=== PATIENT | male | born 1965 | race African-American/Black ===

== ENCOUNTER 2017-05-07 15:55 | Inpatient (IN) | payer OTHER ==
[~2017-05-07] VITALS: Ht 175.3 cm; Wt 144.8 kg
[2017-05-07] MEDS ORDERED: SODIUM CHLORIDE 0.9% 1,000 ML IV SCH (16:09)
[2017-05-07] MEDS ORDERED: ASPIRIN 325 MG TABLET PO STA (16:09)
[2017-05-07] MEDS ORDERED: MORPHINE SULFATE 4 MG/ML, 1ML ONE ×2 (16:15→16:26)
[2017-05-07] MEDS ORDERED: ONDANSETRON 2MG/ML, 2ML ONE (16:18)
[2017-05-07 16:28] LABS: HEMATOCRIT 45.2 % (39.2-51.8); HEMOGLOBIN 14.3 g/dL (13.7-18.0); WHITE BLOOD COUNT 13.2 x10^3/uL (3.4-10)
[2017-05-07] MEDS ORDERED: morphine SULFATE 10 MG/ML, 1ML IVPush ONE (16:30)
[2017-05-07] MEDS ORDERED: FENTANYL PF 100 MCG/2ML IVPush PRN (16:30)
[2017-05-07] MEDS ORDERED: ONDANSETRON 2MG/ML, 2ML IVPush ONE (16:30)
[2017-05-07] MEDS ORDERED: MORPHINE SULFATE 4 MG/ML, 1ML IVPush ONE (16:30)
[2017-05-07] MEDS ORDERED: NITROGLYCERIN 5 MG/ML, 10ML ONE (16:40)
[2017-05-07] MEDS ORDERED: LIDOCAINE 2%, 20ML ONE (16:40)
[2017-05-07] MEDS ORDERED: FENTANYL PF 100 MCG/2ML ONE (16:40)
[2017-05-07] MEDS ORDERED: MIDAZOLAM 1 MG/ML, 5ML ONE (16:40)
[2017-05-07] MEDS ORDERED: HEPARIN 1,000 UNITS/ML, 10ML ONE ×2 (16:40→16:59)
[2017-05-07] MEDS ORDERED: VERAPAMIL 2.5 MG/ML, 2ML ONE (16:40)
[2017-05-07] MEDS ORDERED: BIVALIRUDIN 250 MG ONE ×2 (16:40→16:47)
[2017-05-07] MEDS ORDERED: TICAGRELOR 90 MG TABLET ONE (16:40)
[2017-05-07] MEDS ORDERED: PRASUGREL 10 MG TABLET ONE (16:41)
[2017-05-07] MEDS ORDERED: BIVALIRUDIN 250 MG in DEXTROSE 5% 50 ML IV SCH (17:26)
[2017-05-07] MEDS ORDERED: ZOLPIDEM 5MG TABLET PO PRN (17:30)
[2017-05-07] MEDS ORDERED: ONDANSETRON 2MG/ML, 2ML IVPush PRN (17:30)
[2017-05-07] MEDS ORDERED: ACETAMINOPHEN 325 MG TABLET PO PRN (17:30)
[2017-05-07] MEDS ORDERED: METF10002 PO (18:09)
[2017-05-07] MEDS ORDERED: ATOR40TA78 PO (18:09)
[2017-05-07] MEDS ORDERED: LISI10TA2 PO (18:09)
[2017-05-07] MEDS ORDERED: GLIP10TA13 PO (18:09)
[2017-05-07] MEDS ORDERED: NPH,100V SQ-INSULIN (18:09)
[2017-05-07 18:10] VITALS: BP 129/82
[2017-05-07] MEDS: METOPROLOL TARTRATE 25 MG TABLET PO SCH (18:33)
[2017-05-07 18:42] LABS: IS PT STATUS REG ER OR PRE ER? NO
[2017-05-07] MEDS ORDERED: metFORMIN 500 MG TABLET PO SCH (21:00)
[2017-05-07] MEDS: INSULIN ASPART 100 UNITS/ML, PEN SQ-INSULIN SCH (21:10)
[2017-05-07] MEDS: INSULIN NPH HUMAN 100 UNIT/ML, 3ML VIAL SQ-INSULIN SCH (21:26)
[2017-05-08 00:06] LABS: IS PT STATUS REG ER OR PRE ER? NO
[2017-05-08 04:00] VITALS: BP 122/84
[2017-05-08 04:47] LABS: HEMATOCRIT 42.4 % (39.2-51.8); HEMOGLOBIN 13.6 g/dL (13.7-18.0)
[2017-05-08 04:56] LABS: BLOOD UREA NITROGEN 13 mg/dL (7-18)
[2017-05-08] MEDS: METOPROLOL TARTRATE 25 MG TABLET PO SCH ×2 (05:58→17:11)
[2017-05-08] MEDS: ASPIRIN 325 MG TABLET PO SCH (05:58)
[2017-05-08] MEDS: INSULIN ASPART 100 UNITS/ML, PEN SQ-INSULIN SCH ×4 (06:52→21:57)
[2017-05-08] MEDS: INSULIN NPH HUMAN 100 UNIT/ML, 3ML VIAL SQ-INSULIN SCH ×2 (08:55→21:57)
[2017-05-08] MEDS: PRASUGREL 10 MG TABLET PO SCH (08:59)
[2017-05-08] MEDS: ATORVASTATIN 40 MG TABLET PO SCH (11:26)
[2017-05-08] MEDS: LISINOPRIL 10 MG TABLET PO SCH (11:26)
[2017-05-08 15:07] VITALS: BP 148/72
[2017-05-08] MEDS ORDERED: ZOLPIDEM 5MG TABLET PO PRN (20:00)
[2017-05-08] MEDS ORDERED: ONDANSETRON 2MG/ML, 2ML IVPush PRN (20:00)
[2017-05-08] MEDS ORDERED: ACETAMINOPHEN 325 MG TABLET PO PRN (20:00)
[2017-05-08 20:30] VITALS: BP 106/67
[2017-05-09 02:00] VITALS: BP 104/66
[2017-05-09] MEDS: METOPROLOL TARTRATE 25 MG TABLET PO SCH (06:00)
[2017-05-09] MEDS ORDERED: METOPROLOL TARTRATE 50 MG TABLET ONE (06:07)
[2017-05-09] MEDS: ASPIRIN 325 MG TABLET PO SCH (06:13)
[2017-05-09] MEDS: INSULIN ASPART 100 UNITS/ML, PEN SQ-INSULIN SCH ×2 (07:00→11:49)
[2017-05-09 07:50] VITALS: BP 111/71
[2017-05-09] MEDS: PRASUGREL 10 MG TABLET PO SCH (09:00)
[2017-05-09] MEDS ORDERED: ASPI-515 PO (10:55)
[2017-05-09] MEDS ORDERED: METO25TA35 PO (10:55)
[2017-05-09] MEDS ORDERED: PRAS10TA4 PO (10:55)
[2017-05-09] MEDS: ATORVASTATIN 40 MG TABLET PO SCH (10:56)
[2017-05-09] MEDS: INSULIN NPH HUMAN 100 UNIT/ML, 3ML VIAL SQ-INSULIN SCH (10:57)
[2017-05-09] MEDS: LISINOPRIL 10 MG TABLET PO SCH (10:57)
[2017-05-09] MEDS ORDERED: NITR0.4T28 SL (12:26)
== END 2017-05-09 12:31 | disposition home or self-care (01) | DRG 247 ==
LOC: ED 16:18 → EDIP 16:45 → CCU 17:36 → 5SO 05-08 11:44 → DCLOUNGE 05-09 12:20
PROVIDERS: ADMIT Internal Medicine Cardiovascular Disease; ATTEND Internal Medicine Cardiovascular Disease
PROC: 027034Z Dilation of Coronary Artery, One Artery with Drug-eluting Intraluminal Device, Percutaneous Approach (ICD-10-PCS; principal; 2017-05-07)
PROC: 03HY32Z Insertion of Monitoring Device into Upper Artery, Percutaneous Approach (ICD-10-PCS; 2017-05-07)
PROC: 4A023N7 Measurement of Cardiac Sampling and Pressure, Left Heart, Percutaneous Approach (ICD-10-PCS; 2017-05-07)
PROC: B2111ZZ Fluoroscopy of Multiple Coronary Arteries using Low Osmolar Contrast (ICD-10-PCS; 2017-05-07)
PROC: B2151ZZ Fluoroscopy of Left Heart using Low Osmolar Contrast (ICD-10-PCS; 2017-05-07)
DX: I21.19 ST elevation (STEMI) myocardial infarction involving other coronary artery of inferior wall (principal); I47.2 Ventricular tachycardia; Z68.42 Body mass index [BMI] 45.0-49.9, adult; I11.9 Hypertensive heart disease without heart failure; E11.9 Type 2 diabetes mellitus without complications; E66.9 Obesity, unspecified; E78.5 Hyperlipidemia, unspecified; F17.200 Nicotine dependence, unspecified, uncomplicated; G47.30 Sleep apnea, unspecified; I25.10 Atherosclerotic heart disease of native coronary artery without angina pectoris; Z79.82 Long term (current) use of aspirin; Z82.49 Family history of ischemic heart disease and other diseases of the circulatory system; Z83.3 Family history of diabetes mellitus; Z90.49 Acquired absence of other specified parts of digestive tract; Z71.6 Tobacco abuse counseling
CPT/HCPCS: 36415; 71010; 80047; 80048; 82040; 82962; 84484; 85014; 85018; 85025; 85610; 85730; 87081; 93005; 93306; 93458; 96374; 96375; 99156; 99157; C1894; J0583; J1644; J1815; J2250; J2405; J3010; J3490; C1725; C1769; C1874; C1887; J2270; J7030; Q9967